=== PATIENT | female | born 1970 | race Caucasian/White ===

== ENCOUNTER 2021-04-24 05:51 | Inpatient (IN) | payer BC ==
[2021-04-23 09:31] VITALS: BMI 288.9
[2021-04-26 16:01] VITALS: BP 124/77; TEMP 98.4
== END 2021-04-26 16:50 | disposition home or self-care (01) | DRG 470 ==
LOC: SDC 05:51 → SURG A 11:18 → EDSTATUS 16:00
PROVIDERS: ADMIT Orthopaedic Surgery; ATTEND Orthopaedic Surgery
PROC: 0SR9039 Replacement of Right Hip Joint with Ceramic Synthetic Substitute, Cemented, Open Approach (ICD-10-PCS; principal; 2021-04-24)
DX: M16.11 Unilateral primary osteoarthritis, right hip (principal); Z20.822 Contact with and (suspected) exposure to COVID-19; F41.9 Anxiety disorder, unspecified; K58.9 Irritable bowel syndrome, unspecified; G43.909 Migraine, unspecified, not intractable, without status migrainosus; K21.9 Gastro-esophageal reflux disease without esophagitis; Z79.899 Other long term (current) drug therapy
CPT/HCPCS: 85027; J0171; J0690; J1100; J1885; J2001; J2250; J2405; J2704; J2765; J3010; J3370; J3490; J7050; S0020